=== PATIENT | male | born 1955 | race Caucasian/White ===

== ENCOUNTER → 2023-11-14 06:09 | Day surgery (SDC) | payer MEDICARE, OTHER, SELFPAY | LOC: GI 06:09 | PROVIDERS: ATTENDING PHYSICIAN Internal Medicine | DX: Z12.11 Encounter for screening for malignant neoplasm of colon (principal); D12.2 Benign neoplasm of ascending colon; D12.3 Benign neoplasm of transverse colon; K57.30 Diverticulosis of large intestine without perforation or abscess without bleeding; K64.8 Other hemorrhoids | CPT/HCPCS: 45380; 88305 ==

== ENCOUNTER 2024-02-01 15:59 | Emergency (ER) | payer MEDICARE, OTHER, SELFPAY ==
[2024-02-01 16:08] VITALS: BP 147/78
[2024-02-01 16:19] VITALS: BMI 28.9
--- NOTE | 2024-02-01 16:44 | ED.GENMED ---
History of Present Illness
General
Chief Complaint: Fall
Source: patient
Time Seen by Provider: 02/01/24 16:34
History of Present Illness
History of Present Illness:
68-year-old male presents to the emergency room complaining of injuries from falling off a ladder. Patient states he was getting to 10 feet up in the air when he began to fall off the ladder. He landed on his feet and then fell to the ground. He
is complaining of pain in bilateral heels as well as his right hand. He denies striking his head. He denies loss of consciousness. He further denies any chest pain, abdominal pain, nausea. He was ambulatory after the fall. He takes no
prescription medications.
Phy Exam
Physical Exam
Physical Exam:
General: Awake, Alert, Oriented X3. No acute distress.
Vitals: unremarkable
Head: Atraumatic
Eyes: Pupils equal, EOMI
Throat: Airway intact, no exudates
Neck: Trachea midline
Lungs: Clear and equal b/l
Heart: Regular rate, no murmurs
Abd: Soft, Nontender, No pulsatile mass
Neuro: Nonfocal
Skin: Warm, dry, no rash
Extremities: pulses equal b/l, no edema. Tenderness to palpation bilateral heels. No deformity. No ecchymosis. Mild pain to palpation in the right hand snuffbox. Range of motion intact at the wrist and all digits.
Course
Orders/Labs/Results
Orders:
Orders
02/01/24 16:43
Calcaneus, Left 2 View [CR Heel/os Calcis - Left 2 Vw*] Urgent
Comment:
Reason For Exam: fall from ladder
Calcaneus, Right 2 View [CR Heel/os Calcis - Right 2 Vw] Urgent
Comment:
Reason For Exam: fall from ladder
Hand, Right 3 View [CR Hand - Right Min 3 Views] Urgent
Comment:
Reason For Exam: fall from ladder
Vital Signs
Initial and Last Documented VS:
Initial Vital Signs
Temp Pulse Resp BP Pulse Ox
98.3 F 65 16 147/78 96
02/01/24 16:08 02/01/24 16:08 02/01/24 16:08 02/01/24 16:08 02/01/24 16:08
Last Documented Vital Signs
Temp Pulse Resp BP Pulse Ox
98.3 F 71 18 151/81 96
02/01/24 16:08 02/01/24 18:30 02/01/24 18:30 02/01/24 18:00 02/01/24 18:30
MDM/Problems Addressed
Differential Diagnosis Includes:
Calcaneal fracture, heel contusion, scaphoid fracture, wrist sprain
MDM/Problems Addressed:
Imaging shows no acute fracture. Patient was able to ambulate without requiring crutches or walker which makes calcaneal fracture extremely unlikely. Patient put in a thumb spica splint because of pain in the right snuffbox despite negative
imaging. Explained to patient she will follow-up with hand surgery if the pain is not feeling better in 3 to 4 days
*Radiology
Radiology exam reviewed: radiology read reviewed
*Pulse Oximetry
Patient hypoxic: no
*Critical Care Note
Total Time (30-74mins, 75-104mins- exclusive of procedures): Not Applicable
ED Attending Note
-
Portions of this chart may have been created with voice recognition software.� Occasional wrong word or��sound alike� substitutions may have occurred due to the inherent limitations of voice recognition software.
Discharge Plan
Departure
Patient Disposition: Home (Routine Discharge)
Date of Disposition: 02/01/24
Time of Disposition: 18:44
Patient with high blood pressure during this ER visit?: Yes
Condition: Good
Discharge Problem:
Contusion of right heel, Contusion of left heel, Right wrist sprain
Instructions: Wrist Sprain ED, BLOOD PRESSURE, Contusion
Referrals:
Rodriguez Reyes, [Family Provider] -
Miki Herrera MD [Active] -
Activity Restrictions/Additional Instructions:
I have given you contact information for a hand specialist if your wrist pain does not improve in a couple days.
Interventions
Interventions:
*Risk Screen - Suicide Last Done: 02/01/24 16:19
*General Assessment Last Done: 02/01/24 16:19
*Neglect/Abuse Screening Last Done: 02/01/24 16:19
*ED COVID-19 Vaccine History Last Done: 02/01/24 16:19
*Nursing Disposition Last Done: 02/01/24 19:00
ED-Musculoskeletal Assessment Last Done: 02/01/24 16:22
ED- Neurological Assessment Last Done: 02/01/24 16:22
ED-Skin Assessment Last Done: 02/01/24 16:22
Discharge Date and Time
Discharge Date/Time: 02/01/24 19:01
Print Language: ZAMBIAN
[2024-02-01 17:00] VITALS: BP 146/76
[2024-02-01 18:00] VITALS: BP 151/81
== END 2024-02-01 19:01 | disposition home or self-care (01) ==
LOC: EMR 15:59
PROVIDERS: EMERGENCY PHYSICIAN Emergency Medicine; FAMILY PHYSICIAN Family Medicine
DX: S90.31XA Contusion of right foot, initial encounter (principal); S90.32XA Contusion of left foot, initial encounter; S63.501A Unspecified sprain of right wrist, initial encounter; W11.XXXA Fall on and from ladder, initial encounter; R03.0 Elevated blood-pressure reading, without diagnosis of hypertension
CPT/HCPCS: 99283; 73130; 73650

== ENCOUNTER → 2024-04-22 11:00 | Outpatient (REF) | payer MEDICARE, OTHER, SELFPAY | LOC: RAD 11:00 | PROVIDERS: ATTENDING PHYSICIAN Family Medicine; FAMILY PHYSICIAN Student in an Organized Health Care Education/Training Program | DX: M79.89 Other specified soft tissue disorders (principal); M70.22 Olecranon bursitis, left elbow; I87.2 Venous insufficiency (chronic) (peripheral) | CPT/HCPCS: 93971 ==